=== PATIENT | female | born 1965 | race Caucasian/White ===

== ENCOUNTER → 2016-09-11 | Outpatient (REF) | payer OTHER ==
[2016-09-11 16:57] LABS: BASO % 0.3 % (0.0-1.0); EOS % 0.5 % (0.0-3.0); LARGE UNSTAINED CELL # 0.1 K/mm3 (0.0-0.4); LARGE UNSTAINED CELL % 1.6 % (0.0-4.0); LYMPH # 0.9 K/mm3 (1.5-4.5); LYMPH % 9.8 % (24.0-44.0); MEAN CORPUSCULAR HEMOGLOBIN 30.8 pg (27.0-33.0); MEAN CORPUSCULAR HGB CONC 33.9 g/dl (32.0-36.5); MONO # 0.9 K/mm3 (0.0-0.8); MONO % 9.6 % (0.0-5.0); NEUTROPHILS # 7.1 K/mm3 (1.8-7.7); NEUTROPHILS % 78.3 % (36.0-66.0); PLATELET COUNT, AUTOMATED 307 k/mm3 (150-450); RED CELL DISTRIBUTION WIDTH 11.9 % (11.5-14.5); WHITE BLOOD COUNT 9.1 K/mm3 (4.0-10.0)
[2016-09-11 17:47] LABS: ALBUMIN 4.1 GM/DL (3.2-5.2); ALBUMIN/GLOBULIN RATIO 1.17 (1.00-1.93); ALKALINE PHOSPHATASE 63 U/L (45-117); ALT/SGPT 21 U/L (12-78); ANION GAP 10 MEQ/L (8-16); AST/SGOT 15 U/L (15-37); BILIRUBIN,TOTAL 0.4 MG/DL (0.2-1.0); BLOOD UREA NITROGEN 9 MG/DL (7-18); CALCIUM LEVEL 9.1 MG/DL (8.5-10.1); CARBON DIOXIDE LEVEL 28 MEQ/L (21-32); CHLORIDE LEVEL 102 MEQ/L (98-107); CREATININE FOR GFR 0.89 MG/DL (0.55-1.02); GLOMERULAR FILTRATION RATE > 60.0 (>51); GLUCOSE, FASTING 87 MG/DL (70-105); POTASSIUM SERUM 3.6 MEQ/L (3.5-5.1); SODIUM LEVEL 140 MEQ/L (136-145); TOTAL PROTEIN 7.6 GM/DL (6.4-8.2)
== END ==
LOC: M LAB REF 16:24
PROVIDERS: ATTEND Physician Assistant
DX: R10.30 Lower abdominal pain, unspecified (principal)

== ENCOUNTER 2016-09-12 13:12 | Emergency (ER) | payer OTHER ==
[2016-09-12] MEDS ORDERED: ISOVUE-370 76% 100ML VIAL (Q9967) As Ordered ONE (14:59)
--- NOTE | 2016-09-12 16:24 | EDDOCDS ---
Physician Documentation [facility] Name: Luanne Castillo Age: 50 yrs Sex: Female : 1965 Arrival Date: 09/12/2016 Time: 13:12 Bed I9 / 22 Private MD: NO PRIMARY PHYSICIAN, . Disposition: 09/12/16 16:12 Discharged to Home/Self Care. Impression: Other and unspecified ovarian cysts - 5.5cm X3.8 CM, left. - Condition is Stable. - Discharge Instructions: Ovarian Cyst. - Prescriptions for Ultram 50 mg Oral Tablet - take 1 tablet by ORAL route every 6 hours As needed MDD: 4 tabs; 20 tablet. - Medication Reconciliation, Local Pharmacy Hours form. - Follow up: Emergency Department; When: As needed; Reason: Worsening of conditions. Follow up: [facility], -; When: Call to arrange an appointment; Reason: Wound/Symptom Recheck, Recheck today's complaints, Worsening of conditions, Continuance of care. - Problem is an ongoing problem. - Symptoms are unchanged. Historical: - Allergies: SULFA (SULFONAMIDES); Neosporin ([id number]); - Home Meds: 1. none - PMHx: none; - Social history: Smoking status: Patient states was never smoker of tobacco. No barriers to communication noted, The patient speaks fluent Chilean, Speaks appropriately for age. - Family history: Not pertinent. - : The pt / caregiver states he / she is not on anticoagulants. Home medication list is obtained from the patient. - Exposure Risk Screening:: None identified. 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 1 in. (154.94 cm); Pain 7/10; 16:21 BP 151 / 76; Pulse 89; Resp 18; Temp 99.2(O); Pulse Ox 100% on R/A; Pain 0/10; kc3 13:14 Body Mass Index 22.11 (53.07 kg, 154.94 cm) cmb MDM: 14:55 IV Saline Lock ordered. cc10 14:55 Undress patient appropriately for examination ordered. cc10 14:55 CT ABD & PELVIS: IV Contrast Only Ordered. EDMS 14:57 UA Ordered. EDMS 15:33 Financial registration complete. gjomar 15:34 UA Reviewed. [facility] 15:39 [facility] Payment Agreement was scanned into [employer] and attached to record. wong Signatures: Dispatcher [employer] EDOH Corwin Felipe, RN RN dy Melisa ArnoldRN RN ck1 Bowen Redd, PA-C PA-C cc Shira Barrera RN RN kc3 Eusebia Hill The chart was reviewed and I authenticate all verbal orders and agree with the evaluation and treatment provided.Attachments: 15:39 [facility] Payment Agreement gjb MTDD
--- NOTE | 2016-09-12 16:24 | EDDOCDS ---
Nurse's Notes [facility] Name: Luanne Castillo Age: 50 yrs Sex: Female : 1965 Arrival Date: 09/12/2016 Time: 13:12 Bed I9 / 22 Private MD: NO PRIMARY PHYSICIAN, . Diagnosis: Other and unspecified ovarian cysts-5.5cm X3.8 CM, left Presentation: 09/12 13:35 Presenting complaint: Patient states: pain when sitting with feeling of presence in dy rectum of foreign body or infection. was seen at Urgent care and sent for CT scan which is pending insurance approval. Adult Sepsis Screening: The patient does not have new or worsening altered mentation. Patient's respiratory rate is less than 22. Systolic blood pressure is greater than 100. Patient has a qSOFA score of 0- Negative Sepsis Screen. Suicide/Homicide risk assessment- the patient denies having any suicidal and/or homicidal ideations and does not present with any other emotional, behavioral or mental health complaints. Status: Patient is not a student financial services counselor or dependent. Transition of care: patient was not received from another setting of care. 13:35 Acuity: TEREZA Level 3 dy 13:35 Method Of Arrival: Walkin/Carried/Asstd dy Triage Assessment: 13:38 General: Appears in no apparent distress. Pain: Location: anus. HIV screening NA for dy this visit Offered previously. 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 none - PMHx: none; - Social history: Smoking status: Patient states was never smoker of tobacco. No barriers to communication noted, The patient speaks fluent Hungarian, Speaks appropriately for age. - Family history: Not pertinent. - : The pt / caregiver states he / she is not on anticoagulants. Home medication list is obtained from the patient. - Exposure Risk Screening:: None identified. Screenin:34 Screening information is obtained from the patient. Fall risk: No risks identified. ck1 Assistance ADL's: requires no assistance with activities of daily living. Abuse/DV Screen: The patient / caregiver reports he/she is: not in a situation that causes fear, pain or injury. Nutritional screening: No deficits noted. Advance Directives: Currently, there is no health care proxy. home support is adequate. Assessment: 15:35 General: Appears in no apparent distress, comfortable, Behavior is appropriate for age, ck1 cooperative. Pain: Location: anus Pain At worst was 10 out of 10 on a pain scale. Aggravated by sitting. Neurological: Level of Consciousness is awake, alert, obeys commands, Oriented to person, place, time. Respiratory: Respiratory effort is unlabored, Respiratory pattern is regular, symmetrical. GI: Denies constipation, diarrhea, hemorrhoids, nausea, vomiting. Derm: Skin is intact, is healthy with good turgor, Skin is pink, warm & dry. 16:20 General: Appears in no apparent distress, comfortable, Behavior is appropriate for age, kc3 cooperative. Pain: Denies pain. Neurological: Level of Consciousness is awake, alert, obeys commands. Respiratory: Respiratory effort is even, unlabored. Derm: Skin is pink, warm & dry. Vital Signs: 13:14 BP 127 / 81; Pulse 91; Resp 16; Temp 99.2(O); Pulse Ox 100% ; Weight 53.07 kg; Height 5 cmb ft. 1 in. (154.94 cm); Pain 7/10; 16:21 BP 151 / 76; Pulse 89; Resp 18; Temp 99.2(O); Pulse Ox 100% on R/A; Pain 0/10; kc3 13:14 Body Mass Index 22.11 (53.07 kg, 154.94 cm) cmb Vitals: 13:14 Log In Time: September 12, 2016 at 13:12. cmb ED Course: 13:13 Patient visited by Bela Rodríguez. cmb 13:13 NO PRIMARY PHYSICIAN, . is Private Physician. cmb 13:13 Patient moved to Waiting cmb 13:15 Patient moved to Pre RCE cmb 13:38 Triage Initiated dy 14:32 [facility] Redd [facility] cc10 14:32 Radha Keller MD is Attending Physician. cc10 14:32 Patient visited by Bowen Redd PA-C. cc10 14:32 Patient visited by Bowen Redd PA-C. cc10 14:32 Patient moved to Triage 3 rs6 14:56 Patient moved to I9 / 22 mlb1 15:06 UA Sent. mlb1 15:22 Patient visited by Melisa Arnold,SHAISTA. ck1 15:27 Inserted saline lock: 20 gauge in right antecubital area The patient tolerated the ck1 procedure well. Kori Clarke RN. 15:35 The patient / caregiver is instructed regarding the plan of care and ED course. ck1 15:39 [facility] Payment Agreement was scanned into [employer] and attached to record. gjb 15:55 Patient visited by Melisa Arnold RN. ck1 16:12 [facility], - is Referral Physician. cc10 16:20 Discontinued IV lock intact, bleeding controlled, pressure dressing applied, No kc3 redness/swelling at site. No procedures done that require assistance. Order Results: Lab Order: UA; SPEC'M 09/12/16 15:04 Test: APPEARANCE, URINE; Value: CLEAR; Range: CLEAR; Status: F Test: COLOR, URINE; Value: STRAW; Range: YELLOW; Status: F Test: PH,URINE; Value: 7.0; Range: 5.0-9.0; Units: UNITS; Status: F Test: SPECIFIC GRAVITY URINE AUTO; Value: 1.002; Range: 1.002-1.035; Status: F Test: PROTEIN, URINE AUTO; Value: NEGATIVE; Range: NEGATIVE; Units: mg/dL; Status: F Test: GLUCOSE, URINE (UA) AUTO; Value: NEGATIVE; Range: NEGATIVE; Units: mg/dL; Status: F Test: KETONE, URINE AUTO; Value: NEGATIVE; Range: NEGATIVE; Units: mg/dL; Status: F Test: UROBILINOGEN, URINE AUTO; Value: 0.2; Range: 0.0-2.0; Units: mg/dL; Status: F Test: BILIRUBIN, URINE AUTO; Value: NEGATIVE; Range: NEGATIVE; Status: F Test: NITRITE, URINE AUTO; Value: NEGATIVE; Range: NEGATIVE; Status: F Test: LEUKOCYTE ESTERASE, URINE AUTO; Value: NEGATIVE; Range: NEGATIVE; Status: F Test: BLOOD, URINE BLOOD; Value: 1+; Range: NEGATIVE; Abnormal: Above high normal; Status: F Test: WBC, URINE AUTO; Value: 0; Range: 0-3; Units: /HPF; Status: F Test: RBC, URINE AUTO; Value: 1; Range: 0-3; Units: /HPF; Status: F Test: BACTERIA, URINE AUTO; Value: NEGATIVE; Range: NEGATIVE; Status: F Test: SQUAMOUS EPITHELIAL CELL UR AU; Value: 1; Range: 0-6; Units: /HPF; Status: F Test: HYALINE CAST, URINE AUTO; Value: 0; Range: 0-1; Units: /LPF; Status: F Outcome: 15:34 CT Study completed. ck1 16:12 Discharge ordered by Provider. cc10 16:21 Discharge Assessment: Patient awake, alert and oriented x 3. No cognitive and/or kc3 functional deficits noted. Patient verbalized understanding of disposition instructions. patient administered narcotics - no. The following High Risk Discharge criteria are identified: None. Condition: stable. Discharge instructions given to patient, Instructed on discharge instructions, follow up and referral plans. medication usage, Demonstrated understanding of instructions, medications, Pt was receptive of discharge instructions/ teaching. Prescriptions given X 1. Property :Personal belongings accompany Pt. 16:23 Patient left the ED. kc3 Signatures: Corwin Felipe, RN RN dy Lizandro Clarke RN RN mlb1 Melisa ArnoldRN RN ck1 Bela Rodríguez Colin, PA-C PA-C cc10 Spring Zaldivar, LAP WELDER LAP WELDER rs6 Shira Barrera,RN RN kc3 Eusebia Hill MTDD
--- NOTE | 2016-09-12 16:32 | REP ---
CT of the abdomen and pelvis with IV contrast 09/12/2016 Indication: Exclude perirectal abscess Comparison: CT abdomen and pelvis 10/14/2013 Technique: Following IV contrast administration with 100 mL Isovue 370 mg/mL, 3 mm continuous spiral axial sections were performed through the abdomen and pelvis. Findings: There is a 4 mm calcified granuloma within the lateral basilar segment left lower lobe. Minimal bibasilar atelectatic changes are noted. Liver, spleen, pancreas are unremarkable. The gallbladder is contracted and there is a fold within the midportion of the gallbladder. There is no visualized cholelithiasis or biliary dilatation. Adrenal glands are normal. Kidneys are without hydronephrosis. The stomach is contracted. The small bowel is within normal limits. The terminal ileum and the appendix are normal. Abdominal aorta is of normal course and caliber. There is no retroperitoneal adenopathy Bladder is normal. The uterus is grossly normal. There is a complex left adnexal cyst, likely a hemorrhagic cyst measuring 5.5 x 3.8 x 5.5 cm. The right ovary is not definitely seen . Mural thickening in the left colon and is most compatible with under distension, yet could represent mild nonspecific colitis. No free air or ascites. There is no visualized perirectal abscess Impression1. No visualized perirectal abscess.2. Complex (likely hemorrhagic) left ovarian cyst measuring 5.5 cm AP x 3.8 cm transverse x 5.5 cm craniocaudal dimension. Consider further evaluation with pelvic ultrasound with Doppler if clinically indicated. 3. Contracted gallbladder with mild mural thickening yet no visualized stones. Unremarkable appendix. Signed by Dawna Sampson MD 09/13/2016 07:57 P
--- NOTE | 2016-09-14 17:24 | EDDOCDS ---
Nurse's Notes [facility] Name: Luanne Castillo Age: 50 yrs Sex: Female : 1965 Arrival Date: 09/12/2016 Time: 13:12 Bed I9 / 22 Private MD: NO PRIMARY PHYSICIAN, . Diagnosis: Other and unspecified ovarian cysts-5.5cm X3.8 CM, left Presentation: 09/12 13:35 Presenting complaint: Patient states: pain when sitting with feeling of presence in dy rectum of foreign body or infection. was seen at Urgent care and sent for CT scan which is pending insurance approval. Adult Sepsis Screening: The patient does not have new or worsening altered mentation. Patient's respiratory rate is less than 22. Systolic blood pressure is greater than 100. Patient has a qSOFA score of 0- Negative Sepsis Screen. Suicide/Homicide risk assessment- the patient denies having any suicidal and/or homicidal ideations and does not present with any other emotional, behavioral or mental health complaints. 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 Transition of care: patient was not received from another setting of care. 13:35 Acuity: TEREZA Level 3 dy 13:35 Method Of Arrival: Walkin/Carried/Asstd dy Triage Assessment: 13:38 General: Appears in no apparent distress. Pain: Location: anus. HIV screening NA for dy this visit Offered previously. 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 none - PMHx: none; - Social history: Smoking status: Patient states was never smoker of tobacco. No barriers to communication noted, The patient speaks fluent Korean, Speaks appropriately for age. - Family history: Not pertinent. - : The pt / caregiver states he / she is not on anticoagulants. Home medication list is obtained from the patient. - Exposure Risk Screening:: None identified. Screenin:34 Screening information is obtained from the patient. Fall risk: No risks identified. ck1 Assistance ADL's: requires no assistance with activities of daily living. Abuse/DV Screen: The patient / caregiver reports he/she is: not in a situation that causes fear, pain or injury. Nutritional screening: No deficits noted. Advance Directives: Currently, there is no health care proxy. home support is adequate. Assessment: 15:35 General: Appears in no apparent distress, comfortable, Behavior is appropriate for age, ck1 cooperative. Pain: Location: anus Pain At worst was 10 out of 10 on a pain scale. Aggravated by sitting. Neurological: Level of Consciousness is awake, alert, obeys commands, Oriented to person, place, time. Respiratory: Respiratory effort is unlabored, Respiratory pattern is regular, symmetrical. GI: Denies constipation, diarrhea, hemorrhoids, nausea, vomiting. Derm: Skin is intact, is healthy with good turgor, Skin is pink, warm & dry. 16:20 General: Appears in no apparent distress, comfortable, Behavior is appropriate for age, kc3 cooperative. Pain: Denies pain. Neurological: Level of Consciousness is awake, alert, obeys commands. Respiratory: Respiratory effort is even, unlabored. Derm: Skin is pink, warm & dry. Vital Signs: 13:14 BP 127 / 81; Pulse 91; Resp 16; Temp 99.2(O); Pulse Ox 100% ; Weight 53.07 kg; Height 5 cmb ft. 1 in. (154.94 cm); Pain 7/10; 16:21 BP 151 / 76; Pulse 89; Resp 18; Temp 99.2(O); Pulse Ox 100% on R/A; Pain 0/10; kc3 13:14 Body Mass Index 22.11 (53.07 kg, 154.94 cm) cmb Vitals: 13:14 Log In Time: September 12, 2016 at 13:12. cmb ED Course: 13:13 Patient visited by Bela Rodríguez. cmb 13:13 NO PRIMARY PHYSICIAN, . is Private Physician. cmb 13:13 Patient moved to Waiting cmb 13:15 Patient moved to Pre RCE cmb 13:38 Triage Initiated dy 14:32 Bowen Redd PA-C [facility]. cc10 14:32 Radha Keller MD is Attending Physician. cc10 14:32 Patient visited by Bowen Redd PA-C. cc10 14:32 Patient visited by Bowen Redd PA-C. cc10 14:32 Patient moved to Triage 3 rs6 14:56 Patient moved to I9 / 22 mlb1 15:06 UA Sent. mlb1 15:22 Patient visited by Melisa Arnold,SHAISTA. ck1 15:27 Inserted saline lock: 20 gauge in right antecubital area The patient tolerated the ck1 procedure well. Kori Clarke RN. 15:35 The patient / caregiver is instructed regarding the plan of care and ED course. ck1 15:39 [facility] Payment Agreement was scanned into [employer] and attached to record. gjb 15:55 Patient visited by Melisa Arnold,SHAISTA. ck1 16:12 [facility] to [facility], - is Referral Physician. cc10 16:20 Discontinued IV lock intact, bleeding controlled, pressure dressing applied, No kc3 redness/swelling at site. No procedures done that require assistance. 17:11 CT ABD & PELVIS: IV Contrast Only Returned. EDMS 09/13 11:12 T-Sheet-- Draft Copy was scanned into [employer] and attached to record. gb Order Results: Lab Order: UA; SPEC'M 09/12/16 15:04 Test: APPEARANCE, URINE; Value: CLEAR; Range: CLEAR; Status: F Test: COLOR, URINE; Value: STRAW; Range: YELLOW; Status: F Test: PH,URINE; Value: 7.0; Range: 5.0-9.0; Units: UNITS; Status: F Test: SPECIFIC GRAVITY URINE AUTO; Value: 1.002; Range: 1.002-1.035; Status: F Test: PROTEIN, URINE AUTO; Value: NEGATIVE; Range: NEGATIVE; Units: mg/dL; Status: F Test: GLUCOSE, URINE (UA) AUTO; Value: NEGATIVE; Range: NEGATIVE; Units: mg/dL; Status: F Test: KETONE, URINE AUTO; Value: NEGATIVE; Range: NEGATIVE; Units: mg/dL; Status: F Test: UROBILINOGEN, URINE AUTO; Value: 0.2; Range: 0.0-2.0; Units: mg/dL; Status: F Test: BILIRUBIN, URINE AUTO; Value: NEGATIVE; Range: NEGATIVE; Status: F Test: NITRITE, URINE AUTO; Value: NEGATIVE; Range: NEGATIVE; Status: F Test: LEUKOCYTE ESTERASE, URINE AUTO; Value: NEGATIVE; Range: NEGATIVE; Status: F Test: BLOOD, URINE BLOOD; Value: 1+; Range: NEGATIVE; Abnormal: Above high normal; Status: F Test: WBC, URINE AUTO; Value: 0; Range: 0-3; Units: /HPF; Status: F Test: RBC, URINE AUTO; Value: 1; Range: 0-3; Units: /HPF; Status: F Test: BACTERIA, URINE AUTO; Value: NEGATIVE; Range: NEGATIVE; Status: F Test: SQUAMOUS EPITHELIAL CELL UR AU; Value: 1; Range: 0-6; Units: /HPF; Status: F Test: HYALINE CAST, URINE AUTO; Value: 0; Range: 0-1; Units: /LPF; Status: F Radiology Order: CT ABD & PELVIS: IV Contrast Only Test: CT ABD & PELVIS: IV Contrast Only REASON FOR EXAMINATION: r/o perirectal abscess; CT of the abdomen and pelvis with IV contrast 09/12/2016; ; Indication: Exclude perirectal abscess; ; Comparison: CT abdomen and pelvis 10/14/2013; ; Technique: Following IV contrast administration with 100 mL Isovue 370 mg/mL, 3; mm continuous spiral axial sections were performed through the abdomen and; pelvis.; ; Findings: There is a 4 mm calcified granuloma within the lateral basilar segment; left lower lobe. Minimal bibasilar atelectatic changes are noted.; ; Liver, spleen, pancreas are unremarkable. The gallbladder is contracted and; there is a fold within the midportion of the gallbladder. There is no visualized; cholelithiasis or biliary dilatation. Adrenal glands are normal. Kidneys are; without hydronephrosis. The stomach is contracted. The small bowel is within; normal limits. The terminal ileum and the appendix are normal. Abdominal aorta; is of normal course and caliber. There is no retroperitoneal adenopathy; ; Bladder is normal. The uterus is grossly normal. There is a complex left; adnexal cyst, likely a hemorrhagic cyst measuring 5.5 x 3.8 x 5.5 cm. The right; ovary is not definitely seen . Mural thickening in the left colon and is most; compatible with under distension, yet could represent mild nonspecific colitis.; No free air or ascites. There is no visualized perirectal abscess; ; Impression1. No visualized perirectal abscess.2. Complex (likely hemorrhagic); left ovarian cyst measuring 5.5 cm AP x 3.8 cm transverse x 5.5 cm craniocaudal; dimension. Consider further evaluation with pelvic ultrasound with Doppler if; clinically indicated. 3. Contracted gallbladder with mild mural thickening yet; no visualized stones. Unremarkable appendix.; ; ; ; ; Signed by; Dawna Sampson MD 09/13/2016 07:57 P; Outcome: 09/12 15:34 CT Study completed. ck1 16:12 Discharge ordered by Provider. cc10 16:21 Discharge Assessment: Patient awake, alert and oriented x 3. No cognitive and/or kc3 functional deficits noted. Patient verbalized understanding of disposition instructions. patient administered narcotics - no. The following High Risk Discharge criteria are identified: None. Condition: stable. Discharge instructions given to patient, Instructed on discharge instructions, follow up and referral plans. medication usage, Demonstrated understanding of instructions, medications, Pt was receptive of discharge instructions/ teaching. Prescriptions given X 1. Property :Personal belongings accompany Pt. 16:23 Patient left the ED. kc3 Signatures: Dispatcher [employer] EDMS Flor Nance, Tahir Reg Corwin Meyer, RN RN Lizandro Fay RN RN mlb1 Melisa Arnold RN RN ck1 Bela Rodríguez cmb Bowen Redd, PA-C PA-C cc10 Spring Zaldivar, ANALYTICAL RESEARCH PROGRAM MANAGER ANALYTICAL RESEARCH PROGRAM MANAGER rs6 Shira Barrera,RN RN kc3 Eusebia Hill Chart Complete MTDD
--- NOTE | 2016-09-14 17:24 | EDDOCDS ---
Physician Documentation [facility] Name: Luanne Castillo Age: 50 yrs Sex: Female : 1965 Arrival Date: 09/12/2016 Time: 13:12 Bed I9 / 22 Private MD: NO PRIMARY PHYSICIAN, . Disposition: 09/12/16 16:12 Discharged to Home/Self Care. Impression: Other and unspecified ovarian cysts - 5.5cm X3.8 CM, left. - Condition is Stable. - Discharge Instructions: Ovarian Cyst. - Prescriptions for Ultram 50 mg Oral Tablet - take 1 tablet by ORAL route every 6 hours As needed MDD: 4 tabs; 20 tablet. - Medication Reconciliation, Local Pharmacy Hours form. - Follow up: Emergency Department; When: As needed; Reason: Worsening of conditions. Follow up: Woman to Woman, -; When: Call to arrange an appointment; Reason: Wound/Symptom Recheck, Recheck today's complaints, Worsening of conditions, Continuance of care. - Problem is an ongoing problem. - Symptoms are unchanged. Historical: - Allergies: SULFA (SULFONAMIDES); Neosporin ([id number]); - Home Meds: 1. none - PMHx: none; - Social history: Smoking status: Patient states was never smoker of tobacco. No barriers to communication noted, The patient speaks fluent Bhutanese, Speaks appropriately for age. - Family history: Not pertinent. - : The pt / caregiver states he / she is not on anticoagulants. Home medication list is obtained from the patient. - Exposure Risk Screening:: None identified. 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 1 in. (154.94 cm); Pain 7/10; 16:21 BP 151 / 76; Pulse 89; Resp 18; Temp 99.2(O); Pulse Ox 100% on R/A; Pain 0/10; kc3 13:14 Body Mass Index 22.11 (53.07 kg, 154.94 cm) cmb MDM: 14:55 IV Saline Lock ordered. cc10 14:55 Undress patient appropriately for examination ordered. cc10 14:55 CT ABD & PELVIS: IV Contrast Only Ordered. EDMS 14:57 UA Ordered. EDMS 15:33 Financial registration complete. b 15:34 UA Reviewed. cc10 15:39 [facility] Payment Agreement was scanned into [employer] and attached to record. gjb 09/13 11:12 T-Sheet-- Draft Copy was scanned into [employer] and attached to record. gb Signatures: Dispatcher [employer] EDWY Flor Nance, Reg Reg gb Corwin Felipe, RN RN dy Melisa ArnoldRN RN ck1 Bowen Redd, PAMariolaC PA-C cc10 Shira Barrera,RN RN kc3 Eusebia Hill [facility] The chart was reviewed and I authenticate all verbal orders and agree with the evaluation and treatment provided.Attachments: 09/12 15:39 [facility] Payment Agreement b 09/13 11:12 T-Sheet-- Draft Copy gb Chart Complete MTDD
--- NOTE | 2016-09-14 17:24 | EDDOCDS ---
Physician Documentation [facility] Name: Luanne Castillo Age: 50 yrs Sex: Female : 1965 Arrival Date: 09/12/2016 Time: 13:12 Bed I9 / 22 Private MD: NO PRIMARY PHYSICIAN, . Disposition: 09/12/16 16:12 Discharged to Home/Self Care. Impression: Other and unspecified ovarian cysts - 5.5cm X3.8 CM, left. - Condition is Stable. - Discharge Instructions: Ovarian Cyst. - Prescriptions for Ultram 50 mg Oral Tablet - take 1 tablet by ORAL route every 6 hours As needed MDD: 4 tabs; 20 tablet. - Medication Reconciliation, Local Pharmacy Hours form. - Follow up: Emergency Department; When: As needed; Reason: Worsening of conditions. Follow up: [facility], -; When: Call to arrange an appointment; Reason: Wound/Symptom Recheck, Recheck today's complaints, Worsening of conditions, Continuance of care. - Problem is an ongoing problem. - Symptoms are unchanged. Historical: - Allergies: SULFA (SULFONAMIDES); Neosporin (mdn-nob-woldn); - Home Meds: 1. none - PMHx: none; - Social history: Smoking status: Patient states was never smoker of tobacco. No barriers to communication noted, The patient speaks fluent Nigerian, Speaks appropriately for age. - Family history: Not pertinent. - : The pt / caregiver states he / she is not on anticoagulants. Home medication list is obtained from the patient. - Exposure Risk Screening:: None identified. 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 1 in. (154.94 cm); Pain 7/10; 16:21 BP 151 / 76; Pulse 89; Resp 18; Temp 99.2(O); Pulse Ox 100% on R/A; Pain 0/10; kc3 13:14 Body Mass Index 22.11 (53.07 kg, 154.94 cm) cmb MDM: 14:55 IV Saline Lock ordered. cc10 14:55 Undress patient appropriately for examination ordered. cc10 14:55 CT ABD & PELVIS: IV Contrast Only Ordered. EDMS 14:57 UA Ordered. EDMS 15:33 Financial registration complete. b 15:34 UA Reviewed. cc10 15:39 [facility] Agreement was scanned into ION Signature and attached to record. gjb 09/13 11:12 T-Sheet-- Draft Copy was scanned into ION Signature and attached to record. gb Signatures: Dispatcher [employer] EDID Flor Nance, Reg Reg gb Corwin Felipe, RN RN dy Melisa ArnoldRN RN ck1 Bowen Redd, PAMariolaC PA-C cc10 Shira Barrera,RN RN kc3 Eusebia Hill [facility] The chart was reviewed and I authenticate all verbal orders and agree with the evaluation and treatment provided.Attachments: 09/12 15:39 [facility] [place] Payment Agreement b 09/13 11:12 T-Sheet-- Draft Copy gb Chart Complete MTDD
== END 2016-09-12 16:23 | disposition home or self-care (01) ==
LOC: M ED 13:12
DX: N83.292 Other ovarian cyst, left side (principal); Z88.2 Allergy status to sulfonamides; Z88.8 Allergy status to other drugs, medicaments and biological substances
CPT/HCPCS: 74177; 81001; 99284; Q9967

== ENCOUNTER → 2016-09-14 | Outpatient (CLI) | payer OTHER ==
--- NOTE | 2016-09-14 12:16 | REP ---
Pelvic sonography: History: Left ovarian cyst on CT study September 12, 2016. Comparison pelvic sonography July 22, 2013. Sonographic findings: Transabdominal and transvaginal scanning are performed. Uterine dimensions are in the upper range of normal at 9.4 x 4.0 x 5.5 cm. Endometrial echo is 1 cm thick and centrally placed. No focal uterine mass is seen. There are Nabothian cysts in the cervix on transvaginal scanning. An unremarkable right ovary is seen measuring 1.6 x 1.0 x 1.7 cm. There is a 6.5 x 4.2 x 5.8 cm complex cystic lesion in the left ovary. Septation and a mural nodule is seen. This corresponds to the CT finding. The mural nodule measures 2.7 cm in greatest dimension. Transvaginal scanning was limited by patient tenderness. Impression: Complex cystic mass in the left ovary 6.5 cm in greatest diameter. There is a mural nodule and a septation in the lesion. Neoplastic ovarian lesion must be considered. Otherwise unremarkable.
== END ==
LOC: M WHC 10:25
PROVIDERS: ATTEND Nurse Practitioner Family
DX: N83.202 Unspecified ovarian cyst, left side (principal)

== ENCOUNTER → 2016-09-14 | Outpatient (REF) | payer OTHER ==
[2016-09-14 14:40] LABS: CA 125 9.4 U/ML (<30.2)
== END ==
LOC: M SFHCPLAZ 13:18
PROVIDERS: ATTEND Nurse Practitioner Family
DX: N83.202 Unspecified ovarian cyst, left side (principal)

== ENCOUNTER → 2016-09-24 | Day surgery (SDC) | payer OTHER ==
[~2016-09-24] VITALS: Ht 154.9 cm; Wt 52.6 kg
[~2016-09-24] MED LIST: BUPIVACAINE HCL 0.25% 30 ML VIAL As Ordered ONE; GLYCOPYRROLATE INJ 0.2 MG/ML 2 ML VIAL As Ordered ONE; KETOROLAC 60 MG/2 ML VIAL (J1885) As Ordered ONE; LIDOCAINE 2% INJ 100 MG/5 ML SYRINGE As Ordered ONE; LR 1,000 ML IV SCH; MEPERIDINE INJ 25 MG/ML VIAL (J2175) IV PRN; METOCLOPRAMIDE INJ 10MG/2ML VIAL (J2765) As Ordered ONE; METOCLOPRAMIDE INJ 10MG/2ML VIAL (J2765) IV PRN; MIDAZOLAM INJ 2 MG/2 ML VIAL (J2250) As Ordered ONE; NEOSTIGMINE 1MG/ML 5 ML SYRINGE (J2710) As Ordered ONE; ONDANSETRON 4MG/2ML VIAL (J2405) As Ordered ONE; ONDANSETRON 4MG/2ML VIAL (J2405) IV PRN; PERC5TAB6 PO; PERCOCET 5MG/325MG TAB PO PRN; PHENYLephrine HCL 500 MCG/5 ML (100MCG/ML) SYRINGE (J2370) As Ordered ONE; PROPOFOL 200 MG/20 ML VIAL As Ordered ONE; ROCURONIUM BROMIDE 50 MG/5 ML VIAL As Ordered ONE; dexameTHASONE 4 MG/ML 1ML VIAL (J1100) As Ordered ONE; fentaNYL 100 MCG/2 ML INJECTION (J3010) As Ordered ONE; fentaNYL 250 MCG/5 ML INJECTION (J3010) As Ordered ONE
[2016-09-24 12:55] LABS: CONTROL LINE HCG INT CTR LINE PRESENT
[2016-09-24] MEDS: fentaNYL 100 MCG/2 ML INJECTION (J3010) IV PRN ×4 (14:36→14:51)
[2016-09-24 17:00] VITALS: BP 123/69
--- NOTE | 2016-09-24 19:18 | RO ---
DATE OF PROCEDURE: 09/24/2016 PREPROCEDURE DIAGNOSIS: Left ovarian hemorrhagic cyst. POSTPROCEDURE DIAGNOSIS: Left ovarian hemorrhagic cyst. PROCEDURE: Laparoscopic left salpingo-oophorectomy. SURGEON: Dr. He Gardner SENIOR GRANTS OFFICER: ANESTHESIA: General endotracheal. ESTIMATED BLOOD LOSS: 100 mL. FINDINGS: 6 cm hemorrhagic cyst of the left ovary, complex in appearance. No evidence of ovarian torsion. Normal appearing right ovary and fallopian tube. Normal uterus, normal upper abdomen. DESCRIPTION OF PROCEDURE: The patient was taken to the operating room where general endotracheal anesthesia was induced. She was prepped and draped in a sterile fashion in the dorsal lithotomy position. Vu catheter was placed. A Hulka uterine tenaculum was placed. A periumbilical incision was made with a scalpel. Veress needle was placed through this incision with tenting up on the skin of the abdomen. Intraabdominal location of the Veress needle was assessed by use of a saline-filled syringe. A pneumoperitoneum was created. The Veress needle was removed. An 11 mm trocar was placed through this incision while tenting up on the skin of the abdomen. Two 5 mm suprapubic ports were placed under direct visualization. A Harmonic scalpel was placed, used to coagulate, incise the IP ligament, fallopian tube and utero-ovarian ligaments. Adhesions of the mass in the posterior cul-de-sac were dissected bluntly. The mass was elevated out of the pelvis. The mass was placed in an Endo Catch bag and elevated to the umbilical port. Cyst was ruptured extracorporeally. Cyst fluid aspirated. Specimens removed in the bag intact. Fascia of the umbilical port was closed with #0 Vicryl sutures. The skin was closed with #4-0 Monocryl. Sponge, instrument and needle counts were correct. The patient was extubated and went to the recovery room in stable condition.
== END | disposition home or self-care (01) ==
LOC: M SDC 11:52
PROVIDERS: ATTEND Specialist
DX: N83.292 Other ovarian cyst, left side (principal); N83.12 Corpus luteum cyst of left ovary; Z88.1 Allergy status to other antibiotic agents; Z88.2 Allergy status to sulfonamides; Z87.891 Personal history of nicotine dependence
CPT/HCPCS: 36415; 58661; 84703; 85014; 85018; 88305; J1100; J1885; J2250; J2370; J2405; J2710; J2765; J3010

== ENCOUNTER → 2016-11-07 | Outpatient (REF) | payer OTHER ==
[~2016-11-07] MED LIST changes: -BUPIVACAINE HCL 0.25% 30 ML VIAL As Ordered ONE; -GLYCOPYRROLATE INJ 0.2 MG/ML 2 ML VIAL As Ordered ONE; -KETOROLAC 60 MG/2 ML VIAL (J1885) As Ordered ONE; -LIDOCAINE 2% INJ 100 MG/5 ML SYRINGE As Ordered ONE; -LR 1,000 ML IV SCH; -MEPERIDINE INJ 25 MG/ML VIAL (J2175) IV PRN; -METOCLOPRAMIDE INJ 10MG/2ML VIAL (J2765) As Ordered ONE; -METOCLOPRAMIDE INJ 10MG/2ML VIAL (J2765) IV PRN; -MIDAZOLAM INJ 2 MG/2 ML VIAL (J2250) As Ordered ONE; -NEOSTIGMINE 1MG/ML 5 ML SYRINGE (J2710) As Ordered ONE; -ONDANSETRON 4MG/2ML VIAL (J2405) As Ordered ONE; -ONDANSETRON 4MG/2ML VIAL (J2405) IV PRN; -PERCOCET 5MG/325MG TAB PO PRN; -PHENYLephrine HCL 500 MCG/5 ML (100MCG/ML) SYRINGE (J2370) As Ordered ONE; -PROPOFOL 200 MG/20 ML VIAL As Ordered ONE; -ROCURONIUM BROMIDE 50 MG/5 ML VIAL As Ordered ONE; -dexameTHASONE 4 MG/ML 1ML VIAL (J1100) As Ordered ONE; -fentaNYL 100 MCG/2 ML INJECTION (J3010) As Ordered ONE; -fentaNYL 250 MCG/5 ML INJECTION (J3010) As Ordered ONE
[2016-11-07 18:28] LABS: ALBUMIN 3.9 GM/DL (3.2-5.2); ALBUMIN/GLOBULIN RATIO 1.08 (1.00-1.93); ALKALINE PHOSPHATASE 71 U/L (45-117); ALT/SGPT 11 U/L (12-78); ANION GAP 10 MEQ/L (8-16); AST/SGOT 13 U/L (15-37); BILIRUBIN,TOTAL 0.4 MG/DL (0.2-1.0); BLOOD UREA NITROGEN 12 MG/DL (7-18); CALCIUM LEVEL 9.2 MG/DL (8.5-10.1); CARBON DIOXIDE LEVEL 25 MEQ/L (21-32); CHLORIDE LEVEL 105 MEQ/L (98-107); CHOLESTEROL LEVEL 198 MG/DL (<200); CREATININE FOR GFR 0.81 MG/DL (0.55-1.02); GLOMERULAR FILTRATION RATE > 60.0 (>51); GLUCOSE, FASTING 80 MG/DL (70-105); POTASSIUM SERUM 3.8 MEQ/L (3.5-5.1); SODIUM LEVEL 140 MEQ/L (136-145); TOTAL PROTEIN 7.5 GM/DL (6.4-8.2); TRIGLYCERIDES LEVEL 75 MG/DL (<150)
== END ==
LOC: M SFHCCLAY 09:35
PROVIDERS: ATTEND Family Medicine
DX: Z00.00 Encounter for general adult medical examination without abnormal findings (principal)

== ENCOUNTER → 2017-06-04 | Outpatient (REF) | payer OTHER ==
[~2017-06-04] MED LIST changes: +PERC5TAB12 PO; -PERC5TAB6 PO
== END ==
LOC: M LAB REF 17:07
PROVIDERS: ATTEND Specialist
DX: Z12.4 Encounter for screening for malignant neoplasm of cervix (principal)

== ENCOUNTER → 2017-06-06 | Outpatient (CLI) | payer OTHER ==
--- NOTE | 2017-06-06 11:25 | REP ---
Pelvic sonography: History: Abdominal pain. Question ovarian cyst. Status post left salpingo-oophorectomy. Comparison sonography September 14, 2016. Comparison CT study September 12, 2016. Findings: Uterine dimensions are normal at 8.5 x 3.5 x 5.4 cm. Endometrial echo 0.6 cm thick. No focal uterine mass is seen. A Nabothian cyst is noted. A normal right ovary is seen measuring 3.0 x 3.0 x 2.9 cm. No free fluid is seen. Left ovary is surgically absent. Impression: Normal pelvic sonography status post left salpingo-oophorectomy. Signed by Meet Cavazos MD 06/06/2017 12:50 P
== END ==
LOC: M RAD 10:00
PROVIDERS: ATTEND Specialist
DX: R10.9 Unspecified abdominal pain (principal)

== ENCOUNTER → 2017-11-13 | Outpatient (REF) | payer OTHER ==
[2017-11-13 12:23] LABS: CHOLESTEROL LEVEL 217 MG/DL (<200); HDL CHOLESTEROL 96 MG/DL (>40); LDL CHOLESTEROL 105.8 MG/DL (<100); NON-HDL-C 121 MG/DL; TRIGLYCERIDES LEVEL 76 MG/DL (<150)
== END ==
LOC: M SFHCCLAY 09:34
DX: Z00.00 Encounter for general adult medical examination without abnormal findings (principal)

== ENCOUNTER → 2018-01-30 | Outpatient (CLI) | payer OTHER | LOC: M RAD 09:02 | DX: K62.89 Other specified diseases of anus and rectum (principal); Z90.721 Acquired absence of ovaries, unilateral | CPT/HCPCS: 76856 ==

== ENCOUNTER → 2018-07-03 | Outpatient (REF) | payer OTHER | LOC: M LAB REF 13:51 | DX: R87.610 Atypical squamous cells of undetermined significance on cytologic smear of cervix (ASC-US) (principal) ==

== ENCOUNTER → 2019-03-13 | Outpatient (CLI) | payer OTHER ==
--- NOTE | 2019-03-13 14:44 | REP ---
BILATERAL MAMMOGRAM WITH 3D TOMOSYNTHESIS, DIAGNOSTIC MAMMOGRAM RIGHT BREAST AND RIGHT BREAST ULTRASOUND: No family history of breast cancer. Tyrer-Cuzick lifetime risk of breast cancer 7.4%. Recent CT of the chest at [facility] showed density in the right breast. Bilateral mammogram performed in the MLO and CC projections with 3D tomosynthesis. Additional compression and rolled views of the right breast are performed. There is asymmetric fibroglandular tissue in the upper outer quadrant of the right breast in the region of the axillary tail. I do not see a discrete mass or architectural distortion. No clustered microcalcifications are seen. Real-time sonographic evaluation of the upper outer quadrant of the right breast is performed. There is an area of ill-defined fibrocystic change with multiple tiny cysts scattered throughout a band of tissue. This corresponds to the mammographic finding. IMPRESSION: BIRADS 3: BI-RADS/ACR category 3 mammogram. Probably Benign Findings. ACR 3 probably benign. In the upper outer quadrant of the right breast, there is asymmetric fibroglandular tissue without any definite mass. This area is seen by ultrasound as a band of tissue containing multiple tiny cystic areas. The finding is likely simply asymmetric fibroglandular tissue. Recommend followup mammogram of the right breast in 6 months. This mammogram was interpreted with the aid of an FDA-approved computer-aided detection system. A. Negative x-ray reports should not delay biopsy if a dominant or clinically suspicious mass is present. B. Four to eight percent of cancers are not identified by x-ray. C. Adenosis and dense breasts may obscure an underlying neoplasm. The patient states she/he had a clinical breast exam in May 2018. The patient letter being requested is M3 Electronically Signed by Vic Dorantes MD 03/16/2019 01:05 P
== END ==
LOC: M RAD 11:03
PROVIDERS: ATTEND Specialist
DX: R92.8 Other abnormal and inconclusive findings on diagnostic imaging of breast (principal); Z12.31 Encounter for screening mammogram for malignant neoplasm of breast
CPT/HCPCS: 76642; 77066; G0279

== ENCOUNTER → 2019-10-06 | Outpatient (CLI) | payer MEDICAID, OTHER, SELFPAY | LOC: M WHC 11:17 | PROVIDERS: ATTEND Specialist | DX: Z12.4 Encounter for screening for malignant neoplasm of cervix (principal) ==

== ENCOUNTER → 2019-11-03 | Outpatient (CLI) | payer OTHER ==
--- NOTE | 2019-11-03 10:19 | REP ---
DIGITAL DIAGNOSTIC UNILATERAL RIGHT BREAST MAMMOGRAPHY WITH CAD, 3D TOMOGRAPHY, AND FOCUSED RIGHT BREAST SONOGRAPHY: HISTORY: 6-month followup for asymmetric parenchymal density upper outer quadrant right breast on March 13, 2019. A breast density was observed on CT study March 03, 2019 prior to that mammogram. The patient reports no change. No more remote prior mammography. FINDINGS: Routine views of the right breast are augmented by a laterally exaggerated craniocaudal projection view. There is a 3.4 cm asymmetric density again noted in the upper outer quadrant similar in appearance mammographically to the prior study on the craniocaudad projection. On the mediolateral projection it appears a little more full along its superior and lateral aspect compared to the prior study. It measures 3.7 cm in greatest dimension on MLO projection image. No spiculation or microcalcification is seen. Breast parenchyma shows scattered fibroglandular densities elsewhere. No other significant finding is seen. SONOGRAPHIC FINDINGS: Focused right breast sonography is performed. At the 11-o'clock position in the upper outer quadrant on the right, there is a heterogeneous oval-shaped area of mixed echogenicity tissue, which is felt to correspond with the mammographic opacity. No frankly cystic changes are seen. By ultrasound, its greatest diameter is 2.7 cm x 0.7 cm. It lies along the pectus muscle interface. IMPRESSION: BIRADS 4: BI-RADS/ACR category 4 mammogram. Suspicious Abnormality - biopsy should be considered. BIRADS category 4 suspicious findings. The asymmetric opacity appears slightly more prominent on the MLO projection image. Ultrasound-guided needle biopsy is recommended with marker clip placement and post clip placement mammography. This mammogram was interpreted with the aid of an FDA-approved computer-aided detection system. The patient states she had a clinical breast exam in October 2019. The patient letter being requested is M4. This patient's estimated Tyrer-Cuzick lifetime risk assessment for the breast cancer is 7.2 %.
== END ==
LOC: M WHC 07:56
PROVIDERS: ATTEND Specialist
DX: R92.8 Other abnormal and inconclusive findings on diagnostic imaging of breast (principal); N63.11 Unspecified lump in the right breast, upper outer quadrant
CPT/HCPCS: 76642; 77065; G0279

== ENCOUNTER → 2019-12-22 | Outpatient (CLI) | payer OTHER ==
[2019-12-22 09:48] VITALS: BP 120/78
--- NOTE | 2019-12-22 13:59 | REP ---
ULTRASOUND GUIDANCE FOR RIGHT BREAST BIOPSY: Ultrasound guidance was provided for Dr. Recio who performed ultrasound-guided biopsy of an oval heterogeneous nodular area in the right breast in the region of 11-o'clock position. This was identified on prior ultrasound 11/03/2019.
--- NOTE | 2019-12-22 14:03 | REP ---
POSTBIOPSY MAMMOGRAM, RIGHT BREAST: Postbiopsy mammogram right breast performed. Ultrasound-guided biopsy was performed of an oval heterogeneous nodular density at 11-o'clock position, right breast. On prior ultrasound of 11/03/2019, this was felt to correspond to an asymmetric parenchymal density at the upper outer quadrant of the right breast. The biopsy clip is seen along the anterior margin of that asymmetric density, indicating that the density on the mammogram likely corresponds to the nodular structure on the ultrasound.
--- NOTE | 2019-12-26 22:11 | ROOPDOC ---
[facility] Report Of Operation Report of Operation DATE OF PROCEDURE: 12/22/19 PREPROCEDURE DIAGNOSES: Right breast mass. POSTPROCEDURE DIAGNOSES: Right breast mass. PROCEDURE: Ultrasound-guided right breast mass biopsy with clip placement. SURGEON: Jennifer Villa DAIRY ASSOCIATE: ANESTHESIA: Local anesthetic was used. ESTIMATED BLOOD LOSS: Approximately 1 mL. COMPLICATIONS: None. REMARKS: Postbiopsy clip is seen in expected location on the right breast mammography DESCRIPTION OF PROCEDURE: Lidocaine 1% LOT [id number] [id number] Expiration 10/2020 Sodium Bicarbonate 8.4% LOT [id number] Expiration 01/2021 Hydromark clip LOT [id number] Expiration 08/2022 SHAPE 3 Bx device: BARD [id number] x10 cm LOT HUEN 3 Expiration 09/2022 Informed consent was obtained. The most common risk and possible complications including bleeding, hematoma, bruising, infection, injury to surrounding structures were explained to the patient and she expressed understanding. Patient was placed on the bed in the supine position with the right upper extremity placed above the head. Appropriate time out was done stating patients name, date of , and the procedure to be performed. The right breast was prepped and draped in the usual fashion. The ultrasound was used to confirm the location of the lesion in the right breast at 10:00 1 centimeter from the nipple. Plain Lidocaine 1% and 8.4% sodium bicarbonate 10:1 mix was used to numb the skin, the biopsy site and tissues along the anticipated biopsy tract. Small skin incision was made with blade number 11. BARD Marquee 14G cannula with introducer ([id number]) was inserted through the incision and advanced under the ultrasound guidance to position immediately adjacent to the lesion. Next, the introducer was removed and BARD Marquee 14G biopsy device was places in the cannula. Pre-biopsy imaging, and post-biopsy imaging were captured. Five good core biopsies were taken at various levels of the lesion. Procedure was challenging as patient is very thin and there was a concern for the lung proximity. Specimen was placed in formaldehyde, labeled with appropriate biopsy site and patients name, and sent to pathology for evaluation. Next, the biopsy device was withdrawn and a clip introducer was inserted into the biopsy site via the cannula. The Hydromark clip was deployed under direct vision. Post-clip placement image was captured. Manual pressure over the biopsy cavity and tract was held after the clip introducer was withdrawn. No bleeding was noted upon removal of the pressure. Post-biopsy mammogram of the right breast was obtained and showed clip in expected position. Postprocedural dressing was placed. Patient tolerated procedure well. Discharge instructions were discussed with the patient and she expressed understanding. JENNIFER VILLA DO Dec 22, 2019 10:13
== END ==
LOC: M WHCPRO 07:59
PROVIDERS: ATTEND Surgery
DX: N60.21 Fibroadenosis of right breast (principal)

== ENCOUNTER → 2020-06-27 | Outpatient (CLI) | payer OTHER ==
--- NOTE | 2020-06-27 12:49 | REP ---
INDICATION: N63.11 RT BREAST MASS W/BENIGN BX,ASSESS STABILITY,6 MO F/U. COMPARISON: Mammogram 11/03/2019 and 12/22/2019, ultrasound 11/03/2019 and 12/22/2019. TECHNIQUE: MLO and CC images of the right breast performed with tomosynthesis. Focused ultrasound performed of the right breast in the region of the axillary tail. FINDINGS: There is mild scattered fibroglandular density unchanged. Asymmetric nodular density in the right axillary tail region is unchanged in appearance. There is a biopsy clip just anterior to this density. There is no change compared to the post biopsy mammogram 12/22/2019. Real-time sonographic evaluation of the posterior upper outer quadrant of the right breast is performed. The biopsy clip is noted just anterior to an oval heterogeneous area of mixed echogenicity. This appears unchanged in size and appearance compared to the prior exam. The Volpara volumetric breast density pattern is C. IMPRESSION: BIRADS/ACR category 2 benign stable findings. No change in the asymmetric nodular density in the region of the right axillary tail. No change in the sonographic appearance of the oval heterogeneous area in this region. This patient's [facility] lifetime breast cancer risk assessment score is 7.2%. This mammogram was interpreted with the aid of an FDA-approved computer-aided detection system. The patient states she had a clinical breast exam 6 months ago. The patient letter being requested is M 1. RECOMMENDATION: The patient is due for screening mammography of the left breast, which was last performed 03/13/2019. Recommend follow-up mammogram right breast in 1 year. <Electronically signed by Vic Dorantes > 06/27/20 [id number]
== END ==
LOC: M WHC 11:02
PROVIDERS: ATTEND Surgery
DX: N63.11 Unspecified lump in the right breast, upper outer quadrant (principal)

== ENCOUNTER → 2020-07-06 | Outpatient (CLI) | payer OTHER ==
--- NOTE | 2020-07-06 09:20 | REPMRS ---
Patient History The patient states she had a clinical breast exam in June 2020. Family history of ovarian cancer at age 44 in mother. Benign US guided breast biopsy. of the right breast, December 22, 2019. 3D TOMOSYNTHESIS WAS PERFORMED. The Thomas Covarrubias lifetime risk for breast cancer is 7.2%. Volpara breast density b. Digital Woman Screen Mammo: July 06, 2020 - Exam #: [id number] CC and MLO view(s) were taken of the left breast. Technologist: Anel Dewey, Technologist Prior study comparison: December 22, 2019, right breast diagnostic unilateral mammo performed at [facility] [place]. November 03, 2019, right breast diagnostic unilateral mammo performed at [facility]. FINDINGS: The breast tissue is heterogeneously dense. This may lower the sensitivity of mammography. There has been no change in the appearance of the mammogram from the prior studies. There is a moderate amount of residual fibroglandular tissue which is fairly symmetric. There is no interval development of dominant mass, areas of architectural distortion, or clustered microcalcification typical of malignancy. Assessment: BI-RADS/ACR category 1 mammogram. Negative Mammogram. Recommendation Routine screening mammogram in 1 year (for women over age 40). This mammogram was interpreted with the aid of an FDA-approved computer-aided dectection system. Electronically Signed By: Vic Dorantes MD 07/06/20 [id number]
== END ==
LOC: M WHC 08:04
PROVIDERS: ATTEND Surgery
DX: Z12.31 Encounter for screening mammogram for malignant neoplasm of breast (principal); Z80.41 Family history of malignant neoplasm of ovary

== ENCOUNTER → 2021-04-05 | Outpatient (CLI) | payer OTHER ==
[2021-04-05 10:39] LABS: BLOOD UREA NITROGEN 17 MG/DL (7-18); CARBON DIOXIDE LEVEL 32 MEQ/L (21-32); CHLORIDE LEVEL 107 MEQ/L (98-107); CHOLESTEROL LEVEL 177 MG/DL (<200); CHOLESTEROL RISK RATIO 2.328 (<5); CREATININE FOR GFR 0.83 MG/DL (0.55-1.30); GLOMERULAR FILTRATION RATE > 60.0 (>51); GLUCOSE, FASTING 81 MG/DL (70-100); HDL CHOLESTEROL 76 MG/DL (>40); LDL CHOLESTEROL 89 MG/DL (<100); NON-HDL-C 101 MG/DL; SODIUM LEVEL 142 MEQ/L (136-145); TRIGLYCERIDES LEVEL 59 MG/DL (<150)
== END ==
LOC: M PLALAB 07:12
PROVIDERS: ATTEND Family Medicine
DX: Z12.11 Encounter for screening for malignant neoplasm of colon (principal); Z13.220 Encounter for screening for lipoid disorders

== ENCOUNTER → 2021-07-05 | Outpatient (CLI) | payer OTHER ==
--- NOTE | 2021-07-05 10:25 | REPMRS ---
Patient History The patient states she has not had a clinical breast exam in over a year. Patient is post menopausal. Family history of ovarian cancer at age 44 in mother. Benign US guided breast biopsy. of the right breast, December 22, 2019. 8 lb weight loss. Patient states no breast complaints today. Patient has signed MRS History Sheet. Digital Woman Screen Mammo: July 05, 2021 - Exam #: [id number] Bilateral CC and MLO view(s) were taken. Technologist: RT Jose De Jesus Prior study comparison: July 06, 2020, bilateral digital woman screen mammo performed at [facility]. June 27, 2020, right breast diagnostic unilateral mammo performed at [facility]. FINDINGS: The breast tissue is heterogeneously dense. This may lower the sensitivity of mammography. Screening. Digital screening (2D) mammography was performed bilaterally in the CC and MLO projections. Additionally, breast tomosynthesis (3D mammography) was performed bilaterally in the CC and MLO projections. Todays exam was compared to the prior exam/exams. By history, the patient has no complaints of a palpable breast abnormality or other significant breast complaints. The breasts are unchanged in size and shape. Once again, dense heterogenous fibroglandular elements are seen bilaterally in a stable appearing pattern but to such a degree that the sensitivity of the mammogram in detecting cancer is decreased.There are no tanner-soft tissue densities or spiculated masses. There is no internal architectural distortion. There are no suspicious tanner-calcific clusters. Skin thickening or nipple retraction is not present. IMPRESSION: BI-RADS Category 2- Benign Findings. There is no evidence of malignant alteration of the breasts. Followup examination recommended in one year. The Volpara volumetric breast density category is C, the breasts are heterogenously dense which may obscure small masses. This mammogram was read with the assistance of Factery,an FDA approved computer aided detection system for mammography. The lifetime Tyrer-Cuzick score is 7 % Due to the density of the breasts or Tyrer Cuzick score of 20% or greater, MRI/whole breast screening ultrasound is warranted. Negative x-ray reports should not delay surgical consultation if a dominant or clinically suspicious mass is present. Not all breast cancers can be identified by mammography. Therefore, we recommend that you continue to perform regular breast self-examination and physical examination and then promptly contact your physician of any concerns or changes. Adenosis and dense breasts may obscure an underlying neoplasm. Assessment: BI-RADS/ACR category 2 mammogram. Benign Findings. Recommendation Routine screening mammogram of both breasts in 1 year. Electronically Signed By: Kevin Jones DO 07/05/21 [id number]
== END ==
LOC: M WHC 08:05
PROVIDERS: ATTEND Surgery
DX: Z12.31 Encounter for screening mammogram for malignant neoplasm of breast (principal); Z78.0 Asymptomatic menopausal state

== ENCOUNTER → 2021-10-10 | Outpatient (REF) | payer OTHER | LOC: M SFHCWAGY 13:19 | PROVIDERS: ATTEND Specialist | DX: Z12.4 Encounter for screening for malignant neoplasm of cervix (principal); N76.0 Acute vaginitis ==

== ENCOUNTER → 2022-06-15 | Outpatient (CLI) | payer OTHER ==
[2022-06-15 11:29] LABS: BASO % 0.7 % (0.0-1.0); EOS # 0.3 10^3/uL (0.0-0.5); EOS % 5.9 % (0.0-3.0); HEMATOCRIT 41.3 % (36.0-47.0); HEMOGLOBIN 13.5 g/dl (12.0-15.5); LYMPH # 1.4 10^3/uL (1.5-5.0); MEAN CORPUSCULAR HEMOGLOBIN 30.8 pg (27.0-33.0); MEAN CORPUSCULAR HGB CONC 32.7 g/dl (32.0-36.5); MEAN CORPUSCULAR VOLUME 94.1 fl (80.0-96.0); MONO # 0.6 10^3/uL (0.0-0.8); MONO % 10.6 % (2.0-8.0); NEUTROPHILS # 3.2 10^3/uL (1.5-8.5); NEUTROPHILS % 57.4 % (36.0-66.0); PLATELET COUNT, AUTOMATED 252 10^3/uL (150-450); RED BLOOD COUNT 4.39 10^6/uL (4.00-5.40); WHITE BLOOD COUNT 5.6 10^3/uL (4.0-10.0)
[2022-06-15 12:04] LABS: ERYTHROCYTE SEDIMENTATION RATE 7 mm/hr (0-30)
[2022-06-15 12:48] LABS: ALT/SGPT 22 U/L (12-78); BILIRUBIN,TOTAL 0.5 MG/DL (0.2-1.0); BLOOD UREA NITROGEN 17 MG/DL (7-18); CALCIUM LEVEL 8.9 MG/DL (8.5-10.1); CARBON DIOXIDE LEVEL 29 MEQ/L (21-32); CHLORIDE LEVEL 106 MEQ/L (98-107); CREATININE FOR GFR 0.88 MG/DL (0.55-1.30); GLOMERULAR FILTRATION RATE > 60.0 (>51); GLUCOSE, FASTING 90 MG/DL (70-100); POTASSIUM SERUM 3.8 MEQ/L (3.5-5.1); SODIUM LEVEL 139 MEQ/L (136-145); TRIGLYCERIDES LEVEL 40 MG/DL (<150)
[2022-06-15 12:49] LABS: ALBUMIN 3.5 GM/DL (3.2-5.2); CHOLESTEROL LEVEL 197 MG/DL (<200); CHOLESTEROL RISK RATIO 1.824 (<5); HDL CHOLESTEROL 108 MG/DL (>40); LDL CHOLESTEROL 81 MG/DL (<100); NON-HDL-C 89 MG/DL; TOTAL PROTEIN 6.7 GM/DL (6.4-8.2)
== END ==
LOC: M PLALAB 07:51
PROVIDERS: ATTEND Physician Assistant
DX: R10.9 Unspecified abdominal pain (principal)

== ENCOUNTER → 2022-07-04 | Outpatient (CLI) | payer OTHER | LOC: M RAD 07:40 | PROVIDERS: ATTEND Physician Assistant | DX: R10.11 Right upper quadrant pain (principal) ==

== ENCOUNTER → 2023-12-04 | Outpatient (CLI) | payer OTHER ==
[2023-12-04 13:16] LABS: BASO % 0.7 % (0.0-1.0); EOS # 0.1 10^3/uL (0.0-0.5); EOS % 1.8 % (0.0-3.0); HEMATOCRIT 45.3 % (36.0-47.0); LYMPH # 1.8 10^3/uL (1.5-5.0); LYMPH % 29.4 % (24.0-44.0); MEAN CORPUSCULAR HEMOGLOBIN 31.1 pg (27.0-33.0); MEAN CORPUSCULAR HGB CONC 33.1 g/dl (32.0-36.5); MEAN CORPUSCULAR VOLUME 93.8 fl (80.0-96.0); MONO # 0.8 10^3/uL (0.0-0.8); NEUTROPHILS # 3.3 10^3/uL (1.5-8.5); NEUTROPHILS % 54.8 % (36.0-66.0); PLATELET COUNT, AUTOMATED 291 10^3/uL (150-450); RED BLOOD COUNT 4.83 10^6/uL (4.00-5.40)
[2023-12-04 13:44] LABS: ALBUMIN 3.8 G/DL (3.2-5.2); ALKALINE PHOSPHATASE 73 U/L (46-116); ALT/SGPT 20 U/L (7.0-40); AST/SGOT 17 U/L (<34); BILIRUBIN,TOTAL 0.7 MG/DL (0.3-1.2); BLOOD UREA NITROGEN 18 MG/DL (9-23); CALCIUM LEVEL 9.6 MG/DL (8.5-10.1); CARBON DIOXIDE LEVEL 28 MMOL/L (20-31); CHLORIDE LEVEL 106 MMOL/L (98-107); CHOLESTEROL LEVEL 212 MG/DL (<200); CHOLESTEROL RISK RATIO 2.31 (<5); CREATININE FOR GFR 0.89 MG/DL (0.55-1.30); GLOMERULAR FILTRATION RATE > 60.0 (>51); GLUCOSE, FASTING 85 MG/DL (60-100); HDL CHOLESTEROL 91.5 MG/DL (>40); LDL CHOLESTEROL 106.9 MG/DL (<100); NON-HDL-C 120.5 MG/DL; POTASSIUM SERUM 4.3 MMOL/L (3.5-5.1); SODIUM LEVEL 138 MMOL/L (136-145); TOTAL PROTEIN 7.1 G/DL (5.7-8.2); TRIGLYCERIDES LEVEL 68 MG/DL (<150)
[2023-12-04 13:45] LABS: TOTAL 25(OH) VITAMIN D 31.6 NG/ML (20.0-100.0)
== END ==
LOC: M PLALAB 08:08
PROVIDERS: ATTEND Physician Assistant
DX: Z01.89 Encounter for other specified special examinations (principal); K90.49 Malabsorption due to intolerance, not elsewhere classified; G43.909 Migraine, unspecified, not intractable, without status migrainosus; Z13.220 Encounter for screening for lipoid disorders